=== PATIENT | male | born 1975 | race Caucasian/White ===

== ENCOUNTER 2018-09-06 13:16 | Day surgery (SDC) | payer OTHER ==
[2018-09-06] VITALS (12 sets, daily range): BP systolic 121–148; BP diastolic 61–85; PULSE 77–100; RESP 10–24; Ht 177.8 cm; Wt 146.2 kg
[~2018-09-06] VITALS: Ht 177.8 cm; Wt 146.2 kg
[~2018-09-06 13:16] MED LIST: LIDOCAINE 2% (SDV) 5 ML INJ ONE; SEVOFLURANE 15 MIN ONE
[2018-09-06] MEDS ORDERED: MICHCT8025 PO (13:50)
[2018-09-06] MEDS ORDERED: BUPIVACAINE 0.5% (SDV) 30 ML INJ ONE (14:44)
[2018-09-06] MEDS ORDERED: LIDOCAINE 1% (MPF) 30 ML INJ ONE (14:45)
--- NOTE | 2018-09-06 15:24 | PREAC ---
Date/Time of Note Date/Time of Note DATE: 09/06/18 TIME: 15:20 Anesthesia Eval and Record Evaluation Time Pre-Procedure Interview DATE: 09/06/18 TIME: 15:20 Age 43 Sex male NPO: 8 hrs Preoperative diagnosis right carpal tunnel Planned procedure right carpal tunnel release, open right ulnar nerve decompression at the elbow Past Medical History Past Medical History: Includes Cardio: HTN, Dyslipidemia Pulm: Smoking Hx (former ), Sleep Apnea, Other (neuroendocrine carcinoma of lung) GI: Morbid obesity Surgery & Anesthesia Issues No known issue Meds Anticoagulation: No Beta Parvin within 24 hr: No Reason Beta Parvin not given: Pt. not on B-Parvin Reported Medications Telmisartan-Hydrochlorothiazide (Micardis HCT) 80-25 Mg Tab, 1 TAB PO DAILY, TAB 09/06/18 Meds reviewed: Yes Allergies Coded Allergies: No Known Allergy (Unverified , 09/06/18) Allergies Reviewed: Yes Labs/Studies Labs Reviewed: Reviewed by anesthesiologist Result Diagram: 09/06/18 1405 09/06/18 1405 Laboratory Tests 09/06/18 14:05 test: N/A Studies: ECG, CXR Pre-procedure Exam Last vitals Vital Signs Date Temp Pulse Resp B/P (MAP) Pulse Ox O2 O2 Flow FiO2 Time Delivery Rate 09/06/18 97.0 77 16 143/68 97 Room Air 13:52 (93) Airway: Adequate mouth opening, Adequate thyromental dist Mallampati: Mallampati III Teeth: Normal Lung: Normal Heart: Normal ASA Physical Status ASA physical status: 3 Emergency: None Planned Anesthetic General/MAC: LMA Planned Pain Management Parenteral pain med, Local by surgeon Pre-operative Attestations Prior to commencing anesthesia and surgery, the patient was re-evaluated, there was verification of: *The patient's identity *The results of appropriate recent lab work and preoperative vital signs *The above evaluation not changing prior to induction *Anesthetic plan, risk benefits, alternative and complications discussed with patient/family; questions answered; patient/family understands, accepts and wishes to proceed. YULIET BARR MD Sep 06, 2018 15:24
[2018-09-06] MEDS ORDERED: LABETALOL HCL 20MG INJ IV PRN (16:00)
[2018-09-06] MEDS ORDERED: MEPERIDINE 25 MG INJ IV PRN (16:00)
[2018-09-06] MEDS ORDERED: hydrALAzine 20 MG INJ IV PRN (16:00)
[2018-09-06] MEDS ORDERED: DIPHENHYDRAMINE 50 MG INJ IV PRN (16:00)
[2018-09-06] MEDS ORDERED: PROCHLORPERAZINE 10 MG INJ IV PRN (16:00)
[2018-09-06] MEDS ORDERED: FENTAnyl 50 MCG/ML VIAL IV PRN (16:00)
[2018-09-06] MEDS ORDERED: HYDROmorphONE 1 MG/5 ML IV SYRINGE IV PRN ×3 (16:00→18:00)
[2018-09-06] MEDS ORDERED: ONDANSETRON 4 MG INJ IV PRN (16:00)
--- NOTE | 2018-09-06 16:02 | HPN ---
Date/Time of Note Date/Time of Note DATE: 09/06/18 TIME: 16:02 Interval H&P Admission Note Pt. seen H&P reviewed: No system changes RAMOS RODRIGUEZ Sep 06, 2018 16:02
[2018-09-06] MEDS ORDERED: MIDAZOLAM 1 MG/ML 2 ML INJ ONE (16:07)
[2018-09-06] MEDS ORDERED: ROPIVACAINE 0.5 % 30 ML VIAL ONE (16:10)
[2018-09-06] MEDS ORDERED: FENTAnyl 50 MCG/ML VIAL ONE (16:11)
[2018-09-06] MEDS ORDERED: CEFAZOLIN 1 GM INJ ONE (16:39)
[2018-09-06] MEDS ORDERED: PROPOFOL 40 ML ONE (16:48)
[2018-09-06] MEDS ORDERED: HYDROmorphONE 2 MG/ML SYG ONE (16:48)
[2018-09-06] MEDS ORDERED: ONDANSETRON 4 MG INJ ONE (16:52)
[2018-09-06] MEDS ORDERED: FAMOTIDINE 20 MG INJ ONE (16:52)
[2018-09-06] MEDS ORDERED: DEXAMETHASONE 4 MG/ML 5 ML INJ ONE (16:52)
[2018-09-06] MEDS ORDERED: KETOROLAC 30 MG INJ ONE (17:33)
--- NOTE | 2018-09-06 17:53 | OPPN ---
Date/Time of Note Date/Time of Note DATE: 09/06/18 TIME: 17:52 Operative Report Preoperative Diagnosis Right carpal tunnel syndrome Right cubital tunnel syndrome Postoperative Diagnosis Right carpal tunnel syndrome Right cubital tunnel syndrome Operation/Procedure Performed Right carpal tunnel release, open Right ulnar nerve decompression at the elbow Right elbow medial epicondylectomy with primary repair of common flexor tendon origin Surgeon see signature line data control assistant none Anesthesia: general Estimated blood loss: 0 - 10 ml's Transfusion Required none Specimen none Grafts/Implants none Complications none RAMOS RODRIGUEZ Sep 06, 2018 17:53
[2018-09-06] MEDS ORDERED: OXYCODONE/ACETAMINOPHEN (5/325) TAB PO PRN ×2 (18:00)
--- NOTE | 2018-09-06 18:04 | PAC ---
Date/Time of Note Date/Time of Note DATE: 09/06/18 TIME: 18:02 Post-Anesthesia Notes Post-Anesthesia Note Last documented vital signs Vital Signs Date Temp Pulse Resp B/P (MAP) Pulse Ox O2 O2 Flow FiO2 Time Delivery Rate 09/06/18 97.0 77 16 143/68 97 Room Air 13:52 (93) Activity: WNL Respiratory function: WNL Cardiovascular function: WNL Mental status: Baseline Pain reasonably controlled: Yes Hydration appropriate: Yes Nausea/Vomiting absent: Yes Comments BP: 135/79 HR: 93 RR: 15 T: 98.3 SaO2: 99% YULIET BARR MD Sep 06, 2018 18:04
--- NOTE | 2018-09-06 18:24 | OPR ---
DATE OF OPERATION: 09/06/2018 SURGEON: Morgan Brown MD ANESTHESIA: Peripheral nerve block plus general. PREOPERATIVE DIAGNOSES: 1. Right carpal tunnel syndrome. 2. Right cubital tunnel syndrome. 3. Right elbow medial epicondylitis. POSTOPERATIVE DIAGNOSIS: 1. Right carpal tunnel syndrome. 2. Right cubital tunnel syndrome. 3. Right elbow medial epicondylitis. PROCEDURES: 1. Right carpal tunnel release, open. 2. Right ulnar nerve decompression at the elbow. 3. Right elbow medial epicondylectomy with primary repair of the common flexor tendon origin. OPERATIVE FINDINGS: Severe compression of the median and ulnar nerves at the wrist and elbow respectively. INDICATION FOR PROCEDURE: This is a 43-year-old male with longstanding right carpal tunnel and cubital tunnel syndrome, who failed conservative management and elected to proceed with surgical intervention, understanding risks and benefits. DESCRIPTION OF PROCEDURE: The patient was seen in the preoperative area and all further questions were answered. Again, he gave informed consent understanding risks and benefits. In fact, the patient was taken to operative suite in the supine position. A peripheral nerve block was performed and the patient was placed under general anesthesia. Tourniquet was placed in the right upper extremity and right upper extremity was prepped with ChloraPrep stick and draped in usual sterile fashion. Esmarch bandage was used to exsanguinate the extremity and tourniquet inflated to 250 mmHg. Attention was first turned to the carpal tunnel and a 2 cm incision at the base of the palm was utilized with sharp dissection carried down through skin and subcutaneous tissue. The palmar aponeurosis was incised and retractors were deepened to the transverse carpal ligament was incised along its ulnar border approximately 3 mm radial to the hook of the hamate. Retractor was placed proximally and distally and proximal and distal extents of transverse carpal ligament were divided under direct visualization. Wound was copiously irrigated and skin was closed with 5-0 nylon. Attention was turned to the elbow and a curvilinear incision over the medial aspect of the elbow was utilized with sharp dissection carried down through skin and subcutaneous tissue. The medial antebrachial cutaneous nerve was preserved and the Hunt's ligament and FCU fascia were visualized. The FCU fascia was incised and the ulnar nerve was visualized. The ulnar nerve was decompressed with most distal extent. Hnut's ligament was incised at the posterior aspect of the medial epicondyle and the nerve was decompressed. The nerve was followed proximally and was decompressed to the medial intermuscular septum and proximally. The nerve was completely decompressed and was stable in the wound. Attention was turned to the medial epicondyle and a full thickness flap was raised off of the medial epicondyle at the common flexor tendon origin. A 3 to 4 mm portion of the medial epicondyle was removed with an osteotome. A rongeur was used to smooth the edges. The common flexor tendon origin was repaired back down using Ethibond suture. The wound was copiously irrigated and the nerve was quite stable. Skin was closed with 4-0 nylon. Xeroform was placed over the wound followed by sterile gauze, Webril and a long arm splint with the elbow at 60 degrees of flexion. Tourniquet was deflated after a total of 53 minutes. The patient was awakened from anesthesia. He was taken to postoperative suite in stable condition. He tolerated the procedure well without complication. SPECIMENS: None. ESTIMATED BLOOD LOSS: 5 mL. COUNTS: Sponge, instrument, needle counts are correct. TOURNIQUET TIME: 53 minutes. CONDITION ON DISCHARGE: Stable. The patient was given non-refillable 5-day prescription for pain medication for surgery today. Dictated By: MORGAN GAO/DESTINEE Conf#: [id number] DID#: [id number] MTDD
--- NOTE | 2018-09-07 21:46 | RADRPT ---
Vent Rate: 79 bpm RR Interval: 0 msec [place] Interval: 162 msec QRS Duration: 102 msec QT Interval: 388 msec QTC Interval: 444 msec P-R-T [place]: 30 - 73 - 21 degrees Normal sinus rhythm T wave abnormality, consider inferior ischemia Abnormal ECG Electronically Signed By: Jose Loco [id number]
== END 2018-09-06 19:40 | disposition home or self-care (01) ==
LOC: SDS 13:16
PROVIDERS: ATTEND Orthopaedic Surgery Hand Surgery
DX: G56.01 Carpal tunnel syndrome, right upper limb (principal); G56.21 Lesion of ulnar nerve, right upper limb; M77.01 Medial epicondylitis, right elbow; I10 Essential (primary) hypertension; E78.5 Hyperlipidemia, unspecified; Z87.891 Personal history of nicotine dependence
CPT/HCPCS: 24359; 64721; 80053; 85025; 85610; 85730; 93005; J0690; J1100; J1170; J1885; J2250; J2405; J2795; J3010